=== PATIENT | male | born 1980 | race Caucasian/White ===

== ENCOUNTER 2017-02-16 20:10 | Emergency (ER) | payer OTHER ==
[~2017-02-16] VITALS: Ht 177.8 cm; Wt 72.6 kg
[2017-02-16] MEDS ORDERED: KETOROLAC 30 MG/ML VIAL (J1885) IV ONE (22:00)
--- NOTE | 2017-02-16 22:58 | REP ---
Clinical: Pain . Technique: Internal rotation, external rotation, and Y view. Findings: No acute fracture or dislocation. The acromioclavicular and glenohumeral joints are intact. No periarticular calcifications or degenerative changes are appreciated. Sub acromial space is normal. Surrounding soft tissues are unremarkable. Impression: Normal left shoulder radiographs. Signed by Alex Turcios MD 02/16/2017 10:49 P
--- NOTE | 2017-02-16 22:59 | REP ---
Clinical: Pain . Technique: Frontal view of the chest with multiple views of the left hemithorax. Findings: Frontal view of the chest demonstrates no acute cardiopulmonary process. Multiple views of the left hemithorax demonstrates no obvious acute rib fracture or pathology. Impression: Normal left rib series Signed by Alex Turcios MD 02/16/2017 10:50 P
[2017-02-16 23:11] VITALS: BP 141/85
[2017-02-16] MEDS ORDERED: NORCO 5/325MG TABLET (BULK FOR ED) PO ONE (23:30)
[2017-02-16] MEDS ORDERED: PERCOCET 5MG/325MG TAB PO ONE (23:30)
[2017-02-16] MEDS ORDERED: IBUP-1114 PO (23:31)
== END 2017-02-16 23:44 | disposition home or self-care (01) ==
LOC: M ED 21:28
DX: S43.492A Other sprain of left shoulder joint, initial encounter (principal); X50.0XXA Overexertion from strenuous movement or load, initial encounter; Y92.89 Other specified places as the place of occurrence of the external cause; Y93.89 Activity, other specified; Y99.0 Civilian activity done for income or pay; F17.200 Nicotine dependence, unspecified, uncomplicated
CPT/HCPCS: 71101; 73030; 96374; 99283; J1885

== ENCOUNTER 2017-07-04 10:24 | Emergency (ER) | payer OTHER ==
[~2017-07-04] VITALS: Ht 177.8 cm; Wt 155.0 kg
[~2017-07-04 10:24] MED LIST: IBUP-1114 PO
[2017-07-04 10:25] VITALS: BP 147/84
--- NOTE | 2017-07-04 12:05 | REP ---
LEFT HAND, FOUR VIEWS: HISTORY: Trauma. There is no acute fracture or dislocation. The joint spaces are normal in appearance. IMPRESSION: There is no acute fracture or dislocation. Signed by Shawn Duran MD 07/04/2017 11:33 A
[2017-07-04] MEDS ORDERED: BACT800T5 PO (12:17)
[2017-07-04] MEDS ORDERED: TETANUS/DIPHTHERIA TOX ADSORB ADULT 0.5ML SYR/VIAL (90714) IM ONE (12:30)
[2017-07-04] MEDS ORDERED: ADACEL/BOOSTRIX VACCINE (DIPHTH/PERTUSS/ACELL/TETANUS)0.5ML SYR (90715) IM ONE (12:30)
== END 2017-07-04 12:40 | disposition home or self-care (01) ==
LOC: M ED 10:24
DX: S61.412A Laceration without foreign body of left hand, initial encounter (principal); S60.222A Contusion of left hand, initial encounter; W23.0XXA Caught, crushed, jammed, or pinched between moving objects, initial encounter; Y92.9 Unspecified place or not applicable; Y93.9 Activity, unspecified; Y99.0 Civilian activity done for income or pay; F17.200 Nicotine dependence, unspecified, uncomplicated

== ENCOUNTER → 2019-01-24 | Outpatient (CLI) | payer BC ==
[~2019-01-24] MED LIST changes: +BACT800T5 PO
[2019-01-24 07:13] LABS: BASO % 0.4 % (0.0-1.0); EOS # 0.2 10^3/uL (0.0-0.50); EOS % 2.2 % (0.0-3.0); HEMATOCRIT 43.4 % (42.0-52.0); LYMPH # 3.8 10^3/uL (1.5-4.5); LYMPH % 42.7 % (24.0-44.0); MEAN CORPUSCULAR HEMOGLOBIN 31.7 pg (27.0-33.0); MEAN CORPUSCULAR HGB CONC 34.6 g/dl (32.0-36.5); MEAN CORPUSCULAR VOLUME 91.8 fl (80.0-96.0); MONO # 0.7 10^3/uL (0.0-0.8); MONO % 8.1 % (0.0-5.0); NEUTROPHILS # 4.2 10^3/uL (1.8-7.7); NEUTROPHILS % 46.3 % (36.0-66.0); PLATELET COUNT, AUTOMATED 309 10^3/uL (150-450); RED BLOOD COUNT 4.73 10^6/uL (4.30-6.10)
--- NOTE | 2019-01-24 07:34 | REP ---
Clinical: Right elbow pain . Technique: AP, lateral, bilateral oblique views of the right elbow. Findings: No acute fracture or dislocation is appreciated. Joint spaces appear normal. Lateral view demonstrates normal positioning to the anterior and posterior fat pads without evidence for effusion/hemarthrosis. No subcutaneous emphysema or foreign body identified. A small 3 mm calcification is identified just lateral to the lateral humeral condyle along with suspected chronic periosteal reaction suggest the possibility of old injury. Impression: 1. Relatively normal examination. 2. Subtle changes along the lateral aspect of the elbow at the level of the lateral humeral condyle. Electronically Signed by Alex Turcios MD 01/24/2019 07:25 A
[2019-01-24 07:51] LABS: ALBUMIN 3.7 GM/DL (3.2-5.2); ALT/SGPT 22 U/L (12-78); BILIRUBIN,TOTAL 0.3 MG/DL (0.2-1.0); BLOOD UREA NITROGEN 12 MG/DL (7-18); CALCIUM LEVEL 9.1 MG/DL (8.5-10.1); CARBON DIOXIDE LEVEL 29 MEQ/L (21-32); CHLORIDE LEVEL 108 MEQ/L (98-107); CREATININE FOR GFR 0.88 MG/DL (0.70-1.30); GLOMERULAR FILTRATION RATE > 60.0 (>60); GLUCOSE, FASTING 107 MG/DL (70-100); POTASSIUM SERUM 4.3 MEQ/L (3.5-5.1); SODIUM LEVEL 141 MEQ/L (136-145)
== END ==
LOC: M LAB 06:25
PROVIDERS: ATTEND Physician Assistant
DX: R53.83 Other fatigue (principal); M25.521 Pain in right elbow

== ENCOUNTER 2019-09-05 13:59 | Emergency (ER) | payer BC, OTHER ==
[~2019-09-05] VITALS: Ht 177.8 cm; Wt 74.1 kg
--- NOTE | 2019-09-05 15:51 | REP ---
Five views left knee: 09/05/2019. Indication: Left knee pain following fall. Comparison: 04/24/2012. Findings: There is no acute fracture, subluxation or dislocation. No significant joint effusion is present. Impression: No acute osseous left knee injury. Electronically Signed by Dutch Lucia DO 09/05/2019 03:43 P
[2019-09-05 16:20] VITALS: BP 110/53
== END 2019-09-05 16:21 | disposition home or self-care (01) ==
LOC: M ED 13:59
DX: S89.92XA Unspecified injury of left lower leg, initial encounter (principal); X58.XXXA Exposure to other specified factors, initial encounter; Y92.89 Other specified places as the place of occurrence of the external cause; Y99.0 Civilian activity done for income or pay; F17.210 Nicotine dependence, cigarettes, uncomplicated

== ENCOUNTER → 2019-10-30 | Outpatient (REF) | payer BC ==
[2019-10-31 11:15] LABS: RUBELLA IgG QUALITATIVE IMMUNE (IMMUNE)
[2019-11-02 00:08] LABS: HERPES ZOSTER, VARICELLA IgG 357 index (Immune >165); HERPES ZOSTER, VARICELLA IgM <0.91 index (0.00-0.90); MUMPS VIRUS IgG ANTIBODY 65.8 AU/mL (Immune >10.9); RUBEOLA IgG ANTIBODY >300.0 AU/mL (Immune >16.4)
== END ==
LOC: M LABDRAW1 15:35
PROVIDERS: ATTEND Physician Assistant
DX: Z01.84 Encounter for antibody response examination (principal)

== ENCOUNTER → 2020-06-04 | Outpatient (CLI) | payer BC ==
[2020-06-04 08:35] LABS: BASO % 0.6 % (0.0-1.0); EOS # 0.1 10^3/uL (0.0-0.5); EOS % 2.3 % (0.0-3.0); HEMATOCRIT 37.9 % (42.0-52.0); HEMOGLOBIN 13.3 g/dl (13.5-17.5); LYMPH # 1.7 10^3/uL (1.5-5.0); LYMPH % 32.4 % (24.0-44.0); MEAN CORPUSCULAR HEMOGLOBIN 31.7 pg (27.0-33.0); MEAN CORPUSCULAR HGB CONC 35.1 g/dl (32.0-36.5); MEAN CORPUSCULAR VOLUME 90.5 fl (80.0-96.0); MONO # 0.7 10^3/uL (0.0-0.8); MONO % 12.5 % (0.0-5.0); NEUTROPHILS # 2.7 10^3/uL (1.5-8.5); NEUTROPHILS % 51.8 % (36.0-66.0); PLATELET COUNT, AUTOMATED 266 10^3/uL (150-450); RED BLOOD COUNT 4.19 10^6/uL (4.30-6.10); WHITE BLOOD COUNT 5.3 10^3/uL (4.0-10.0)
[2020-06-04 09:04] LABS: ALBUMIN 3.5 GM/DL (3.2-5.2); ALT/SGPT 48 U/L (12-78); BILIRUBIN,TOTAL 0.5 MG/DL (0.2-1.0); BLOOD UREA NITROGEN 14 MG/DL (7-18); CALCIUM LEVEL 9.1 MG/DL (8.5-10.1); CARBON DIOXIDE LEVEL 27 MEQ/L (21-32); CHLORIDE LEVEL 110 MEQ/L (98-107); CHOLESTEROL LEVEL 220 MG/DL (<200); CHOLESTEROL RISK RATIO 3.928 (<5); CREATININE FOR GFR 0.82 MG/DL (0.70-1.30); FREE T4 0.82 NG/DL (0.76-1.46); GLOMERULAR FILTRATION RATE > 60.0 (>60); GLUCOSE, FASTING 102 MG/DL (70-100); HDL CHOLESTEROL 56 MG/DL (>40); LDL CHOLESTEROL 151 MG/DL (<100); NON-HDL-C 164 MG/DL; POTASSIUM SERUM 4.5 MEQ/L (3.5-5.1); RHEUMATOID FACTOR QUANT < 10.0 IU/ML (<15.0); SODIUM LEVEL 142 MEQ/L (136-145); TRIGLYCERIDES LEVEL 66 MG/DL (<150)
[2020-06-04 09:16] LABS: ERYTHROCYTE SEDIMENTATION RATE 4 mm/hr (0-15)
[2020-06-04 09:24] LABS: TOTAL 25(OH) VITAMIN D 25.9 NG/ML (30.0-100.0)
[2020-06-05 17:07] LABS: ANTINUCLEAR ANTIBODIES DIRECT Negative (Negative); Lyme Disease IgG/IgM Antibodie <0.91 ISR (0.00-0.90); Lyme Disease IgM Ab Quantitati <0.80 index (0.00-0.79)
--- NOTE | 2020-06-19 09:38 | REP ---
LEFT TIBIA/FIBULA: 06/04/20 CLINICAL: Swelling. Mass. TECHNIQUE: AP and lateral views of the left tibia/fibula. FINDINGS: No acute fracture or dislocation. Osseous structures and joint spaces are intact and normal. No periosteal reaction noted. Overlying soft tissues are normal. No subcutaneous emphysema or foreign body. NO obvious mass lesion. IMPRESSION: Normal left tibia/fibula radiographs. MTDD
== END ==
LOC: M LAB 07:29
PROVIDERS: ATTEND Nurse Practitioner Family
DX: R53.83 Other fatigue (principal); R22.42 Localized swelling, mass and lump, left lower limb

== ENCOUNTER → 2020-08-22 | Outpatient (CLI) | payer BC ==
[~2020-08-22] MED LIST changes: +PROHANCE 279.3MG/ML 15ML VIAL As Ordered ONE; +PROHANCE 279.3MG/ML 5ML VIAL As Ordered ONE
--- NOTE | 2020-08-22 17:46 | REPVR ---
PROCEDURE INFORMATION: Exam: MR Head Without and With Contrast; Internal Auditory Canals Exam date and time: 08/22/2020 5:10 PM Age: 40 years old Clinical indication: Other: Hearing loss; Additional info: Hearing loss left ear TECHNIQUE: Imaging protocol: MR of the head without and with intravenous contrast. Exam focused on the internal auditory canals. 3D rendering (Not supervised by radiologist): MIP and/or 3D reconstructed images were created by the technologist. Contrast material: PROHANCE; Contrast volume: 16 ml; Contrast route: INTRAVENOUS (IV); COMPARISON: No relevant prior studies available. FINDINGS: Brain: No definitive restricted diffusion within the brain to suggest an acute infarct. There is a curvilinear focus of diffusion hyperintensity within the superior aspect of the cerebellum, without abnormal signal intensity on the remaining sequences. This is suggestive of artifact. Subacute infarction is considered less likely. Although limited by motion artifact, there is no significant cerebral white matter disease. No cerebral edema. Mild dural enhancement is identified anteriorly which is symmetric bilaterally. Differential considerations include infection, metastatic disease, intracranial hypotension, and idiopathic pachymeningitis. Ventricles: No ventriculomegaly. Sinuses: Mucous retention cysts or polyps identified within the bilateral maxillary sinuses. Mild mucosal thickening of ethmoid air cells bilaterally. Mastoid air cells: No effusions. Internal auditory canals: There is no mass effect or pathological enhancement involving the bilateral internal auditory canals or cerebellopontine angle cisterns. The visualized portions of the proximal fifth, seventh, and eighth cranial nerves are unremarkable. Bones/joints: Unremarkable. IMPRESSION: 1. No definitive acute infarct. There is a curvilinear focus of diffusion hyperintensity within the superior aspect of the cerebellum, suggestive of artifact. 2. Mild dural enhancement is identified anteriorly which is symmetric bilaterally. Differential considerations include infection, metastatic disease, intracranial hypotension, and idiopathic pachymeningitis. Further clinical evaluation and follow-up MRI with/without contrast recommended. 3. There is no mass effect or pathological enhancement involving the bilateral internal auditory canals or cerebellopontine angle cisterns. 4. Paranasal sinus disease. Electronically signed by: Bruce Nuñez On 08/22/2020 17:46:38 PM
== END ==
LOC: M RAD 16:07
PROVIDERS: ATTEND Otolaryngology
DX: H90.42 Sensorineural hearing loss, unilateral, left ear, with unrestricted hearing on the contralateral side (principal); J34.1 Cyst and mucocele of nose and nasal sinus
CPT/HCPCS: 70553; A9576

== ENCOUNTER → 2023-11-11 | Outpatient (CLI) | payer BC ==
[~2023-11-11] MED LIST changes: -PROHANCE 279.3MG/ML 15ML VIAL As Ordered ONE; -PROHANCE 279.3MG/ML 5ML VIAL As Ordered ONE
[2023-11-11 10:45] LABS: BASO % 0.6 % (0.0-1.0); EOS # 0.2 10^3/uL (0.0-0.5); EOS % 3.1 % (0.0-3.0); HEMATOCRIT 40.9 % (42.0-52.0); LYMPH # 2.1 10^3/uL (1.5-5.0); MEAN CORPUSCULAR HEMOGLOBIN 31.1 pg (27.0-33.0); MEAN CORPUSCULAR HGB CONC 34.2 g/dl (32.0-36.5); MEAN CORPUSCULAR VOLUME 90.9 fl (80.0-96.0); MONO # 0.4 10^3/uL (0.0-0.8); MONO % 8.6 % (2.0-8.0); NEUTROPHILS # 2.5 10^3/uL (1.5-8.5); NEUTROPHILS % 47.7 % (36.0-66.0); PLATELET COUNT, AUTOMATED 266 10^3/uL (150-450); WHITE BLOOD COUNT 5.1 10^3/uL (4.0-10.0)
[2023-11-11 10:58] LABS: ALBUMIN 3.6 G/DL (3.2-5.2); ALKALINE PHOSPHATASE 60 U/L (46-116); ALT/SGPT 31 U/L (7.0-40); AST/SGOT 17 U/L (<34); BILIRUBIN,TOTAL 0.6 MG/DL (0.3-1.2); BLOOD UREA NITROGEN 16 MG/DL (9-23); CALCIUM LEVEL 9.4 MG/DL (8.5-10.1); CARBON DIOXIDE LEVEL 30 MMOL/L (20-31); CHLORIDE LEVEL 109 MMOL/L (98-107); CHOLESTEROL LEVEL 257 MG/DL (<200); CHOLESTEROL RISK RATIO 4.02 (<5); CREATININE FOR GFR 0.78 MG/DL (0.70-1.30); GLOMERULAR FILTRATION RATE > 60.0 (>60); GLUCOSE, FASTING 112 MG/DL (60-100); HDL CHOLESTEROL 63.9 MG/DL (>40); LDL CHOLESTEROL 181.9 MG/DL (<100); NON-HDL-C 193.1 MG/DL; POTASSIUM SERUM 5.2 MMOL/L (3.5-5.1); SODIUM LEVEL 140 MMOL/L (136-145); TRIGLYCERIDES LEVEL 56 MG/DL (<150)
[2023-11-11 11:00] LABS: TOTAL 25(OH) VITAMIN D 33.4 NG/ML (20.0-100.0)
== END ==
LOC: M LAB 09:41
PROVIDERS: ATTEND Nurse Practitioner Family
DX: Z00.00 Encounter for general adult medical examination without abnormal findings (principal); E55.9 Vitamin D deficiency, unspecified

== ENCOUNTER → 2023-12-29 | Outpatient (CLI) | payer BC | LOC: M LAB 16:53 | PROVIDERS: ATTEND Registered Nurse | DX: Z02.1 Encounter for pre-employment examination (principal) ==

== ENCOUNTER 2024-01-29 11:26 | Emergency (ER) | payer BC ==
[~2024-01-29] VITALS: Ht 177.8 cm; Wt 82.6 kg
[2024-01-29] MEDS ORDERED: EQ S0.65 NARES (11:33)
[2024-01-29] MEDS ORDERED: WELLTAB40 PO (11:33)
[2024-01-29] MEDS ORDERED: MELO15TA28 PO (11:33)
[2024-01-29] MEDS ORDERED: AZEL1SPR3 NARES (11:33)
[2024-01-29] MEDS ORDERED: OMEP40CA4 PO (11:33)
[2024-01-29] MEDS ORDERED: DOXY-440 PO (11:35)
[2024-01-29 13:34] VITALS: BP 136/82; TEMP 97; O2SAT 98
== END 2024-01-29 13:37 | disposition home or self-care (01) ==
LOC: M ED 11:26
DX: L55.9 Sunburn, unspecified (principal); F41.9 Anxiety disorder, unspecified; Z79.52 Long term (current) use of systemic steroids; Z79.899 Other long term (current) drug therapy

== ENCOUNTER → 2025-07-16 | Outpatient (CLI) | payer BC ==
[~2025-07-16] MED LIST changes: +AZEL1SPR3 NARES; +DOXY-440 PO; +EQ S0.65 NARES; +MELO15TA28 PO; +OMEP40CA4 PO; +WELLTAB40 PO
[2025-07-16 16:00] LABS: APPEARANCE, URINE CLEAR (CLEAR); BACTERIA, URINE AUTO NEGATIVE (NEGATIVE); BILIRUBIN, URINE AUTO NEGATIVE (NEGATIVE); BLOOD, URINE BLOOD NEGATIVE (NEGATIVE); GLUCOSE, URINE (UA) AUTO NEGATIVE (NEGATIVE); KETONE, URINE AUTO NEGATIVE (NEGATIVE); LEUKOCYTE ESTERASE, URINE AUTO NEGATIVE (NEGATIVE); MUCUS, URINE SMALL (NEGATIVE); NITRITE, URINE AUTO NEGATIVE (NEGATIVE); PROTEIN, URINE AUTO NEGATIVE (NEGATIVE); RBC, URINE AUTO 0 /HPF (0-3); SPECIFIC GRAVITY URINE AUTO 1.026 (1.002-1.035); SQUAMOUS EPITHELIAL CELL UR AU 0 /HPF (0-6); UROBILINOGEN, URINE AUTO 0.2 mg/dL (0.0-2.0); WBC, URINE AUTO 0 /HPF (0-3)
[2025-07-16 16:01] LABS: BASO # 0.0 10^3/uL (0.0-0.2); BASO % 0.6 % (0.0-1.0); EOS # 0.2 10^3/uL (0.0-0.5); EOS % 2.4 % (0.0-3.0); LYMPH # 2.4 10^3/uL (1.5-5.0); LYMPH % 35.8 % (24.0-44.0); MONO # 0.9 10^3/uL (0.0-0.8); MONO % 12.7 % (2.0-8.0); NEUTROPHILS # 3.3 10^3/uL (1.5-8.5); NEUTROPHILS % 48.2 % (36.0-66.0); PLATELET COUNT, AUTOMATED 322 10^3/uL (150-450)
[2025-07-16 16:24] LABS: ALT/SGPT 36 U/L (7.0-40); AST/SGOT 23 U/L (<34); CALCIUM LEVEL 9.4 MG/DL (8.5-10.1); CARBON DIOXIDE LEVEL 30 MMOL/L (20-31); CHLORIDE LEVEL 104 MMOL/L (98-107); CREATININE FOR GFR 0.88 MG/DL (0.70-1.30); GLOMERULAR FILTRATION RATE > 90.0 (>60); POTASSIUM SERUM 4.6 MMOL/L (3.5-5.1); SODIUM LEVEL 141 MMOL/L (136-145)
== END ==
LOC: M PLALAB 12:19
PROVIDERS: ATTEND Nurse Practitioner Family
DX: R10.32 Left lower quadrant pain (principal)

== ENCOUNTER → 2025-07-26 | Outpatient (CLI) | payer BC ==
[~2025-07-26] MED LIST changes: +ISOVUE-370 76% 100 ML VIAL As Ordered ONE
== END ==
LOC: M RAD 14:05
PROVIDERS: ATTEND Nurse Practitioner Family
DX: R10.32 Left lower quadrant pain (principal); K76.89 Other specified diseases of liver; J98.11 Atelectasis; K57.30 Diverticulosis of large intestine without perforation or abscess without bleeding
CPT/HCPCS: 74177; Q9967